=== PATIENT | female | born 1965 | race Caucasian/White ===

== ENCOUNTER → 2023-04-26 | Outpatient (REF) | payer MEDICAID, SELFPAY ==
[2023-04-26 08:54] LABS: Hematocrit 29.8 % (37-47); Hemoglobin 9.1 g/dL (12.0-15.0); Mean Corp Hgb Conc 30.5 g/dL (32-36); Mean Corpuscular Volume 94.9 fL (81-99); POSITIVE COUNT YES; POSITIVE MORPHOLOGY YES; Platelet Count 101 K/mm3 (150-450); Red Blood Count 3.14 M/mm3 (4.2-5.4); White Blood Count 5.5 K/mm3 (4.4-11.0)
[2023-04-26 09:12] LABS: Vitamin D,25 Hydroxy 7.9 ng/mL
[2023-04-26 09:25] LABS: Anion Gap 4 (5-15); BUN 12 mg/dL (7-18); BUN/Creat Ratio 13.8 RATIO (10-20); Chloride 100 mmol/L (98-107); Creatinine, Serum 0.87 mg/dL (0.55-1.02); EST Glomerular Filtration Rate 71 mL/min (>60); Est Glom Filt Rate - Afr Amer 86 mL/min (>60); Glucose 117 mg/dL (74-106); Magnesium 2.3 mg/dL (1.6-2.6); Potassium 3.9 mmol/L (3.5-5.1); Sodium Level 140 mmol/L (136-145)
[2023-04-26 09:29] LABS: Differential Indicated MANUAL DIFF
[2023-04-26 10:04] LABS: Anisocytosis 2+; Eosinophil 3 % (0-5); Lymphocyte 42 % (19-41); Macrocytosis 1+; Metamyelocyte 1 % (0-1); Microcytosis 1+; Monocyte 3 % (0-10); Myelocyte 4 % (0-0); Neutrophil-Band 1 % (0-5); Neutrophil-Segmented 46 % (47-70); Platelet Estimate ADEQUATE (ADEQ); Total Cells Counted 100 (MANUAL DIFF)
[2023-04-26 10:05] LABS: Absolute Neutrophil Count 2.5 X10^3/uL (2.0-7.7)
[2023-04-26 10:06] LABS: Absolute Lymphocyte Count 2.27 X10^3/uL (0.83-4.51)
[2023-04-27 13:21] LABS: Pathologist Review Reviewed
== END | disposition home or self-care (01) ==
LOC: OLS.SW 05:00
PROVIDERS: Visit Provider Internal Medicine
DX: Z02.2 Encounter for examination for admission to residential institution (principal)
CPT/HCPCS: 36415; 80048; 82306; 83735; 84443; 85025

== ENCOUNTER → 2023-05-07 | Outpatient (REF) | payer MEDICAID, SELFPAY ==
[2023-05-07 08:57] LABS: Anion Gap 6 (5-15); BUN 21 mg/dL (7-18); BUN/Creat Ratio 25.8 RATIO (10-20); Calcium,Total 8.7 mg/dL (8.5-10.1); Chloride 101 mmol/L (98-107); Creatinine, Serum 0.81 mg/dL (0.55-1.02); EST Glomerular Filtration Rate 77 mL/min (>60); Est Glom Filt Rate - Afr Amer 93 mL/min (>60); Glucose 119 mg/dL (74-106); Magnesium 2.2 mg/dL (1.6-2.6); Potassium 3.9 mmol/L (3.5-5.1); Sodium Level 136 mmol/L (136-145); Uric Acid 6.3 mg/dL (2.6-6.0)
== END | disposition home or self-care (01) ==
LOC: OLS.SW 05:00
PROVIDERS: PCP Internal Medicine; Visit Provider Internal Medicine
DX: E03.9 Hypothyroidism, unspecified (principal); M79.7 Fibromyalgia; I10 Essential (primary) hypertension
CPT/HCPCS: 36415; 80048; 83735; 84443; 84550; 86140; 87070

== ENCOUNTER 2023-05-13 20:14 | Emergency (ER) | payer MEDICAID, SELFPAY ==
[2023-05-13 20:15] VITALS: BP 134/79; PULSE 83; RESP 20; TEMP 36.7; O2SAT 95; BMI 67.8
[2023-05-13 20:18] VITALS: BP 134/79; PULSE 83; RESP 19; TEMP 36.7; O2SAT 97
--- NOTE | 2023-05-13 20:31 | EKG12_ITS ---
Test Reason : CP Blood Pressure : / mmHG Vent. Rate : 083 BPM Atrial Rate : 083 BPM P-R Int : 170 ms QRS Dur : 094 ms QT Int : 410 ms P-R-T Axes : 049 -40 032 degrees QTc Int : 481 ms Normal sinus rhythm Left axis deviation Prolonged QT Abnormal ECG Confirmed by RG HARDY, EMILE ([id number]), purchasing expeditor CAROL CURTIS ([id number]) on 05/15/2023 11:57:33 AM Referred By: Confirmed By:EMILE DIEZ MD
--- NOTE | 2023-05-13 20:32 | EDS_ITS ---
HPI History of Present Illness Chief Complaint: Chest Pain Narrative Narrative: Patient is a 57-year-old female who is presenting by EMS with chief complaint of chest pain. Patient is currently in a nursing facility for rehab. Patient states she is been having bilateral chest tightness through anterior chest since yesterday. They finally sent patient into the ER this evening for evaluation. Patient has no cardiac history. Patient says that she is not a diabetic, she is borderline. She does not take blood pressure medicine or cholesterol medication that she is aware of. Patient is morbidly obese. Patient states that she was rubbing her chest earlier today, and she was able to get the pain to subside. Patient currently is ambulating with a walker. Patient has no swelling to her arms or legs. Patient is not on any specific therapy where she is done heavy lifting, twisting or turning where she noted any pain. Patient also has had dull sinus pressure at the left side of her face in the past week, they have been giving her Mucinex. She has no other acute complaints. Patient does not recall ever having a stress test or echocardiogram. Chart review, patient has a history of COPD, asthma, morbid obesity, hyperlipidemia and hypertension is listed along with low thyroid and bipolar. Patient is on Lasix, levothyroxine, statin. [facility] Medical History (Updated 05/13/23 @ 20:22 by Kyleigh Dewitt) Anxiety Asthma Bipolar 1 disorder CHF (congestive heart failure) Chronic obstructive pulmonary disease Depression Fibromyalgia GERD (gastroesophageal reflux disease) Hyperlipidemia Hypertension Hypothyroidism Obesity Obstructive sleep apnea Allergy/AdvReac Type Severity Reaction Status Date / Time azithromycin AdvReac Mild Abd Verified 05/13/23 20:19 cramps/diarrhea Latex, Natural Rubber AdvReac Mild Rash Verified 05/13/23 20:19 Social History Smoking Status: Never smoker ROS ROS ED ROS Narrative REVIEW OF SYSTEMS: Unless otherwise stated in this report the patient's positive and negative responses for review of systems for constitutional, eyes, ENT, cardiovascular, respiratory, gastrointestinal, neurological, , musculoskeletal, and integument systems and related systems to the presenting problem are either stated in the history of present illness or were not pertinent or were negative for the symptoms and/or complaints related to the presenting medical problem. EXAM Physical Exam Narrative Exam Narrative: Vital signs reviewed and patient is not hypoxic. General: The patient appears well and in no apparent distress. Patient is resting comfortably on cart. Not toxic, lethargic, or listless. Skin: Warm, dry, no pallor noted. There is no rash noted. Head: Normocephalic, atraumatic Eye: Normal conjunctiva, no drainage, EOMI. PERRL. Ears, Nose, Mouth, and Throat: oral mucosa is moist. Nares patent. Mouth without vesicles. Cardiovascular: Regular Rate and Rhythm, no murmurs, gallops, or rubs; patient has reproducible tenderness to palpation to the anterior bilateral chest wall, no rash. Pain is recreated with range of motion of upper arms as well to the anterior chest Respiratory: Patient is in no distress, no accessory muscle use, lungs are clear to auscultation, no wheezing, rales or rhonchi Back: non-tender, no CVA tenderness bilaterally to percussion. NO CTLS midline or paraspinal tenderness to palpation. GI: Soft, morbidly obese, no tenderness to palpation, no masses appreciated. No rebound, guarding, or rigidity noted. Musculoskeletal: The patient has full range of motion of all extremities and joints with no difficulty. Patient has no motor, no sensory deficits. No unilateral swelling Neurological: A&O x4, normal speech, no focal neurological deficits. Psychiatric: Cooperative Const Vital Signs: 05/13/23 20:15 05/13/23 20:18 05/13/23 20:22 Temperature 98.1 F 98.1 F Temperature Source Temporal Temporal Pulse Rate 83 83 Respiratory Rate 20 H 19 H Respiratory Effort Normal Non-Labored Blood Pressure 134/79 H 134/79 H Blood Pressure Mean 97 97 Pulse Ox 95 97 Oxygen Delivery Method Nasal Cannula Nasal Cannula Oxygen Flow Rate (L/min) 2 2 05/13/23 20:58 05/13/23 21:18 Temperature Temperature Source Pulse Rate 83 Respiratory Rate 20 H Respiratory Effort Blood Pressure 133/96 H Blood Pressure Mean 108 Pulse Ox 95 97 Oxygen Delivery Method Nasal Cannula Nasal Cannula Oxygen Flow Rate (L/min) 2 2 MDM MDM MDM Narrative Medical decision making narrative: Patient's been having bilateral anterior chest pain/tightness since yesterday. Patient is also having diffuse myalgia and arthralgia. Patient has mild sinus pressure at the left side of her face. Patient's EKG, chest x-ray showed no acute findings. Patient will be discharged back to nursing facility. Patient told me initially she does not take any medicine for cholesterol or blood pressure, she does. Patient does not take any diabetic medication, she was told she is prediabetic. Patient will follow-up with PCP. No questions at discharge. Lab Data Attestation: I reviewed the patient's lab results. Labs: Laboratory Results - last 24 hr 05/13/23 20:50 WBC 9.4 RBC 3.12 L Hgb 8.9 L Hct 29.3 L MCV 93.9 MCH 28.5 MCHC 30.4 L RDW Std Deviation 73.9 H RDW Coeff of Andreea 22.5 H Plt Count 101 L MPV TNP Neut % (Auto) Not Reportable Sodium 140 Potassium 3.7 Chloride 103 Carbon Dioxide 34.0 H Anion Gap 3 L BUN 24 H Creatinine 0.83 Estim Creat Clear Calc 61.86 Est GFR (MDRD) Af Amer 91 Est GFR (MDRD) Non-Af 75 BUN/Creatinine Ratio 28.8 H Glucose 146 H Calcium 9.1 Troponin I High Sens 4 Radiography Chest X-Ray - ED: 1 View and Read by ED Physician Diagnostic Testing: Chest x-ray shows no acute cardiopulmonary disease, no infiltrate, no effusion EKG Initial EKG: Attestation: I personally reviewed and interpreted this EKG as follows: Comments: EKG interpretation. Normal sinus rhythm at 83 beats a minute. left axis deviation. Artifact seen. QTc of 481. Discharge Plan Triage Chief Complaint: Chest Pain ED Provider: Derik Coffey Dx/Rx/DC Orders Primary Care Provider: Christin Umanzor Referrals: Christin Umanzor MD [Primary Care Provider] -
[2023-05-13 20:58] VITALS: O2SAT 95
[2023-05-13 20:58] LABS: Hematocrit 29.3 % (37-47); Hemoglobin 8.9 g/dL (12.0-15.0); Mean Corp Hgb Conc 30.4 g/dL (32-36); Mean Corpuscular Hgb 28.5 pg (27.0-32.0); Mean Corpuscular Volume 93.9 fL (81-99); POSITIVE COUNT YES; POSITIVE MORPHOLOGY YES; Platelet Count 101 K/mm3 (150-450); RBC Distribution Width CV 22.5 % (11.6-14.6); RBC Distribution Width SD 73.9 fl (35.1-43.9); Red Blood Count 3.12 M/mm3 (4.2-5.4); White Blood Count 9.4 K/mm3 (4.4-11.0)
[2023-05-13] MEDS: 0.9% Normal Saline (1000mL) 1,000 ML 150 ML IV (20:58)
[2023-05-13 20:59] LABS: Differential Indicated MANUAL DIFF
[2023-05-13] MEDS: Aspirin 81 MG TAB.CHEW 324 MG PO (21:02)
--- NOTE | 2023-05-13 21:10 | RAD_ITS ---
STUDY: X-RAY CHEST REASON FOR EXAM: Female, 57 years old. chest pain TECHNIQUE: Single AP portable view of the chest. COMPARISON: None. FINDINGS: Minimal left basilar atelectasis, otherwise the lungs are clear and expanded. There is no demonstrated pleural abnormality. Normal size heart. Normal mediastinum and kev. Normal visualized pulmonary arteries. Normal visualized aortic arch and descending thoracic aorta. There are diffuse degenerative changes of the visualized thoracic spine. Normal visualized ribs, clavicles, and shoulders. There is no demonstrated abnormality of the visualized soft tissue structures of the upper abdomen. RAD/Chest 1 View (Portable) IMPRESSION: Minimal left basilar atelectasis. Otherwise no acute cardiopulmonary disease. Electronically Signed: Brandi Mathew MD at 21:54 EDT ,
[2023-05-13 21:18] VITALS: BP 133/96; PULSE 83; RESP 20; O2SAT 97
[2023-05-13 21:18] LABS: Anion Gap 3 (5-15); BUN 24 mg/dL (7-18); BUN/Creat Ratio 28.8 RATIO (10-20); Calcium,Total 9.1 mg/dL (8.5-10.1); Chloride 103 mmol/L (98-107); Creatinine, Serum 0.83 mg/dL (0.55-1.02); EST Glomerular Filtration Rate 75 mL/min (>60); Est Glom Filt Rate - Afr Amer 91 mL/min (>60); Estimated Creatinine Clearance 61.86 ml/min; Glucose 146 mg/dL (74-106); Potassium 3.7 mmol/L (3.5-5.1); Sodium Level 140 mmol/L (136-145); Troponin-I HS (w/2H Reflex) 4 pg/mL (3.0-54.0)
[2023-05-13] MEDS: traMADol 50 MG Tablet 100 MG PO (21:49)
[2023-05-13] MEDS: Ketorolac 30 MG/ML Syringe IV (21:49)
[2023-05-13 22:01] LABS: Eosinophil 1 % (0-5); Lymphocyte 27 % (19-41); Monocyte 6 % (0-10); Neutrophil-Band 4 % (0-5); Neutrophil-Segmented 62 % (47-70); Nucleated Red Bld Cells,Manual 1 % (0-5); Total Cells Counted 100 (MANUAL DIFF)
[2023-05-13 22:02] LABS: Anisocytosis 2+; Hypochromasia 1+
[2023-05-13 22:03] LABS: Platelet Estimate SLT DEC (ADEQ)
[2023-05-13 22:04] LABS: Absolute Lymphocyte Count 2.54 X10^3/uL (0.83-4.51); Absolute Neutrophil Count 6.2 X10^3/uL (2.0-7.7)
--- NOTE | 2023-05-13 22:05 | ED.RN ---
THIS RN CALLED REPORT TO [facility] AT [id number]. REPORT GIVEN TO ASIA MON.. THIS RN TOLD ASIA MON TIMES AND DOSAGES OF MEDICATIONS GIVEN IN ER.
[2023-05-13 22:07] VITALS: BP 117/63; PULSE 85; RESP 18; O2SAT 97
[2023-05-13 22:41] VITALS: BP 110/51; PULSE 82; RESP 17; O2SAT 96
--- NOTE | 2023-05-13 22:42 | ED.RN ---
REPORT GIVEN TO [facility] AT 2242. PT A & OX3. PT ABLE TO STAND TO AMBULANCE COT WITH THREE ASSISTS.
[2023-05-13 22:54] LABS: Reflex Troponin-HS? (from REC) Y
[2023-05-15 10:23] LABS: Pathologist Review Reviewed
== END 2023-05-13 22:43 | disposition home or self-care (01) ==
PROVIDERS: Emergency Provider Emergency Medicine; PCP Internal Medicine; Visit Provider Emergency Medicine
DX: R07.9 Chest pain, unspecified (principal); J44.9 Chronic obstructive pulmonary disease, unspecified; I11.0 Hypertensive heart disease with heart failure; I50.9 Heart failure, unspecified; E66.01 Morbid (severe) obesity due to excess calories; E78.5 Hyperlipidemia, unspecified
CPT/HCPCS: 71045; 80048; 84484; 85025; 93005; 96361; 96374; 99285; J7030

== ENCOUNTER → 2024-08-07 | Outpatient (REF) | payer MEDICAID, SELFPAY ==
[2024-08-07 08:43] LABS: Hematocrit 26.7 % (37-47); Hemoglobin 7.8 g/dL (12.0-15.0); Mean Corp Hgb Conc 29.2 g/dL (32-36); Mean Corpuscular Hgb 25.2 pg (27.0-32.0); Mean Corpuscular Volume 86.1 fL (81-99); POSITIVE COUNT YES; POSITIVE MORPHOLOGY YES; Platelet Count 68 K/mm3 (150-450); RBC Distribution Width CV 28.4 % (11.6-14.6); RBC Distribution Width SD 83.6 fl (35.1-43.9); White Blood Count 50.8 K/mm3 (4.4-11.0)
[2024-08-07 09:31] LABS: Scan Indicated on CBC? Y/N YES- FLAGS NOTED
[2024-08-07 10:01] LABS: Hemoglobin A1c 5.8 % (3.8-5.6)
[2024-08-08 14:26] LABS: Pathologist Review Reviewed
== END | disposition home or self-care (01) ==
LOC: OLS.ACW100 05:00
PROVIDERS: PCP Internal Medicine; Visit Provider Family Medicine
DX: J18.1 Lobar pneumonia, unspecified organism (principal); D46.9 Myelodysplastic syndrome, unspecified; B37.9 Candidiasis, unspecified; D69.6 Thrombocytopenia, unspecified; D64.9 Anemia, unspecified
CPT/HCPCS: 36415; 83036; 85027

== ENCOUNTER → 2024-08-11 | Outpatient (REF) | payer MEDICAID, SELFPAY ==
[2024-08-11 08:29] LABS: Hematocrit 27.1 % (37-47); Hemoglobin 7.7 g/dL (12.0-15.0); Mean Corp Hgb Conc 28.4 g/dL (32-36); Mean Corpuscular Hgb 25.4 pg (27.0-32.0); Mean Corpuscular Volume 89.4 fL (81-99); POSITIVE COUNT YES; POSITIVE MORPHOLOGY YES; Platelet Count 60 K/mm3 (150-450); RBC Distribution Width CV 29.2 % (11.6-14.6); RBC Distribution Width SD 90.4 fl (35.1-43.9); Red Blood Count 3.03 M/mm3 (4.2-5.4); White Blood Count 49.2 K/mm3 (4.4-11.0)
[2024-08-11 09:17] LABS: ALB/GLOB Ratio 0.8 RATIO (0.9-2.4); AST(SGOT) 14 U/L (15-37); Alanine Aminotransfer ALT/SGPT 11 U/L (13-56); Albumin, Serum 2.5 g/dL (3.2-5.0); Alkaline Phosphatase 44 U/L (45-117); Anion Gap 6 (5-15); BUN 25 mg/dL (7-18); BUN/Creat Ratio 29.1 RATIO (10-20); Calcium,Total 9.5 mg/dL (8.5-10.1); Chloride 97 mmol/L (98-107); Creatinine, Serum 0.86 mg/dL (0.55-1.02); EST Glomerular Filtration Rate 72 mL/min (>60); Est Glom Filt Rate - Afr Amer 87 mL/min (>60); Globulin 3.1 g/dL (2.2-4.2); Glucose 113 mg/dL (74-106); Phosphorus 3.7 mg/dL (2.5-4.9); Potassium 4.4 mmol/L (3.5-5.1); Protein, Total 5.6 g/dL (6.4-8.2); Sodium Level 136 mmol/L (136-145); Uric Acid 10.7 mg/dL (2.6-6.0)
[2024-08-11 09:34] LABS: Scan Indicated on CBC? Y/N YES- FLAGS NOTED
[2024-08-15 09:51] LABS: Pathologist Review Reviewed
== END | disposition home or self-care (01) ==
LOC: OLS.ACW100 05:00
PROVIDERS: PCP Internal Medicine; Visit Provider Family Medicine
DX: D46.9 Myelodysplastic syndrome, unspecified (principal); J18.1 Lobar pneumonia, unspecified organism; B37.9 Candidiasis, unspecified; D69.6 Thrombocytopenia, unspecified; D64.9 Anemia, unspecified
CPT/HCPCS: 36415; 80053; 82248; 84100; 84550; 85027

== ENCOUNTER → 2024-08-14 05:00 | Outpatient (REF) | payer MEDICAID, SELFPAY ==
[2024-08-14 08:32] LABS: Hematocrit 25.7 % (37-47); Hemoglobin 7.6 g/dL (12.0-15.0); Mean Corp Hgb Conc 29.6 g/dL (32-36); Mean Corpuscular Hgb 25.8 pg (27.0-32.0); Mean Corpuscular Volume 87.1 fL (81-99); POSITIVE COUNT YES; POSITIVE MORPHOLOGY YES; Platelet Count 62 K/mm3 (150-450); RBC Distribution Width CV 29.4 % (11.6-14.6); RBC Distribution Width SD 86.2 fl (35.1-43.9); Red Blood Count 2.95 M/mm3 (4.2-5.4); White Blood Count 49.7 K/mm3 (4.4-11.0)
[2024-08-14 08:38] LABS: Scan Indicated on CBC? Y/N YES- FLAGS NOTED
[2024-08-14 09:06] LABS: AST(SGOT) 5 U/L (15-37); Alanine Aminotransfer ALT/SGPT 8 U/L (13-56); Albumin, Serum 2.9 g/dL (3.2-5.0); Alkaline Phosphatase 43 U/L (45-117); Anion Gap 5 (5-15); BUN 26 mg/dL (7-18); BUN/Creat Ratio 28.4 RATIO (10-20); Calcium,Total 9.7 mg/dL (8.5-10.1); Chloride 96 mmol/L (98-107); Creatinine, Serum 0.92 mg/dL (0.55-1.02); EST Glomerular Filtration Rate 67 mL/min (>60); Est Glom Filt Rate - Afr Amer 81 mL/min (>60); Globulin 2.9 g/dL (2.2-4.2); Glucose 148 mg/dL (74-106); Potassium 4.1 mmol/L (3.5-5.1); Protein, Total 5.8 g/dL (6.4-8.2); Sodium Level 138 mmol/L (136-145)
[2024-08-15 15:02] LABS: Pathologist Review Reviewed
== END ==
LOC: OLS.ACW100 05:00
PROVIDERS: PCP Internal Medicine; Visit Provider Family Medicine
DX: J18.1 Lobar pneumonia, unspecified organism (principal); D46.9 Myelodysplastic syndrome, unspecified; B37.9 Candidiasis, unspecified; D64.9 Anemia, unspecified; D69.6 Thrombocytopenia, unspecified
CPT/HCPCS: 36415; 80053; 85027